=== PATIENT | female | born 1955 | race Caucasian/White ===

== ENCOUNTER 2024-03-20 20:40 | Inpatient (IN) | payer MEDICARE, OTHER ==
[~2024-03-20] VITALS: Ht 157.5 cm; Wt 60.8 kg
[2024-03-20] MEDS: IV NS 0.9% 1,000 ML BAG IV ONE ×2 (21:00→22:00)
[2024-03-20] MEDS: ACETAMINOPHEN 650 MG/SUPP.RECT RC ONE (21:00)
[2024-03-20] MEDS: CEFEPIME 1 GM in IV D5W 50 ML IV ONE (21:00)
[2024-03-20] MEDS ORDERED: ACETAMINOPHEN 650 MG/SUPP.RECT RC ONE (21:13)
[2024-03-20] MEDS ORDERED: CEFEPIME 1 GM VIAL ONE (21:13)
[2024-03-20 21:14] LABS: BASOPHILS % (AUTO) 0.1 % (0.0-2.0); HEMATOCRIT 29 % (33-45); HEMOGLOBIN 9.9 g/dL (11.5-14.8); LYMPHOCYTES # (AUTO) 0.5 K/uL (0.8-4.8); LYMPHOCYTES % (AUTO) 5.7 % (20.0-44.0); MEAN CORPUSCULAR HEMOGLOBIN 32 PG (26.0-33.0); MEAN CORPUSCULAR HGB CONC 34 g/dl (31.0-36.0); MEAN CORPUSCULAR VOLUME 93 fL (82-100); MONOCYTES # (AUTO) 0.8 K/uL (0.1-1.30); MONOCYTES % (AUTO) 8.5 % (2.0-12.0); NEUTROPHILS # (AUTO) 8.3 K/uL (1.8-8.9); NEUTROPHILS % (AUTO) 85.7 % (43.0-81.0); PLATELET COUNT (AUTO) 107 K/uL (150-450); RED BLOOD CELL COUNT(AUTO) 3.14 MIL/uL (4.0-5.2); WHITE BLOOD COUNT (AUTO) 9.7 K/uL (4.3-11.0)
[2024-03-20 21:15] VITALS: O2SAT 99
[2024-03-20 21:24] LABS: CALCIUM, SERUM 7.3 mg/dL (8.5-10.1); CARBON DIOXIDE 28 mmol/L (21-32); CHLORIDE 105 mmol/L (98-107); CREATININE 0.8 mg/dL (0.6-1.3); GLUCOSE 132 mg/dL (74-106); POTASSIUM 3.8 mmol/L (3.5-5.1); SODIUM SERUM 141 mmol/L (136-145); UREA NITROGEN, BLOOD 24 mg/dL (7-18)
[2024-03-20 21:29] LABS: INR 1.29 (0.91-1.10); PARTIAL THROMBOPLASTIN TIME 45.1 SEC (24.3-34.3); PROTHROMBIN TIME 13.4 SECS (9.2-11.1)
[2024-03-20 21:30] LABS: ALANINE AMINOTRANSFERASE 54 U/L (12-78); ALBUMIN 2.2 g/dL (3.4-5.0); ALKALINE PHOSPHATASE 72 U/L (46-116); ASPARTATE AMINOTRANSFERASE 13 U/L (15-37); BILIRUBIN,DIRECT 0.2 mg/dL (0.0-0.2); BILIRUBIN,TOTAL 0.5 mg/dL (0.2-1.0); TOTAL PROTEIN, SERUM 5.2 g/dL (6.4-8.2)
[2024-03-20] MEDS: VANCOMYCIN 1 GM /D5W 250 ML PB IV ONE (21:35)
[2024-03-20] MEDS: VANCOMYCIN 1 GM in IV D5W 250 ML IV ONE (22:00)
[2024-03-20] MEDS: IV NS 0.9% 500 ML BAG IV ONE (22:00)
[2024-03-20] MEDS ORDERED: ONDANSETRON HCL/PF 4 MG/2 ML VIAL IVP PRN (23:00)
[2024-03-20] MEDS ORDERED: Z GUARD REMEDY 4 OZ OINT TP PRN (23:00)
[2024-03-20 23:30] VITALS: O2SAT 99
[2024-03-20 23:40] LABS: APPEARANCE,URINE CLEAR (CLEAR); BILIRUBIN,URINE NEGATIVE (NEGATIVE); BLOOD, URINE NEGATIVE Ery/uL (NEGATIVE); COLOR,URINE YELLOW (YELLOW); KETONES,URINE NEGATIVE (NEGATIVE); LEUKOCYTE ESTERASE ,URINE NEGATIVE (NEGATIVE); NITRITE, URINE NEGATIVE (NEGATIVE); PROTEIN,URINE TRACE mg/dl (NEGATIVE); UGLUCOSE NEGATIVE (NEGATIVE); UROBILINOGEN,URINE 0.2 EU/dL (0.2)
[2024-03-20 23:44] LABS: ADD URINE CULTURE NO; BACTERIA,URINE None seen /HPF (None Seen); RBC,URINE 0-2 /HPF (0-2); SQUAMOUS EPITHELIAL CELL,UR Rare /HPF (None Seen); WBC,URINE 0-2 /HPF (0-3)
[2024-03-21] VITALS (9 sets, daily range): BP systolic 100–129; BP diastolic 59–97; TEMP 97.1–98.7; O2SAT 94–100
[2024-03-21] MEDS ORDERED: LORAZEPAM INJ 2 MG/ML VIAL IV PRN (02:00)
[2024-03-21] MEDS ORDERED: MORPHINE SULFATE INJ 2 MG/ML DISP.SYRIN IV PRN (02:00)
[2024-03-21 07:38] LABS: BASOPHILS % (AUTO) 0.4 % (0.0-2.0); EOSINOPHILS % (AUTO) 0.3 % (0.0-6.0); HEMATOCRIT 31 % (33-45); HEMOGLOBIN 10.2 g/dL (11.5-14.8); LYMPHOCYTES # (AUTO) 0.8 K/uL (0.8-4.8); MEAN CORPUSCULAR HEMOGLOBIN 31 PG (26.0-33.0); MEAN CORPUSCULAR HGB CONC 33 g/dl (31.0-36.0); MEAN CORPUSCULAR VOLUME 95 fL (82-100); MONOCYTES # (AUTO) 0.5 K/uL (0.1-1.30); MONOCYTES % (AUTO) 5.8 % (2.0-12.0); NEUTROPHILS # (AUTO) 8.1 K/uL (1.8-8.9); NEUTROPHILS % (AUTO) 85.5 % (43.0-81.0); PLATELET COUNT (AUTO) 102 K/uL (150-450); RED BLOOD CELL COUNT(AUTO) 3.25 MIL/uL (4.0-5.2); RED CELL DISTRIBUTION WIDTH 13.8 % (11.5-15.0); WHITE BLOOD COUNT (AUTO) 9.5 K/uL (4.3-11.0)
[2024-03-21 07:58] LABS: CALCIUM, SERUM 7.6 mg/dL (8.5-10.1); CREATININE 0.6 mg/dL (0.6-1.3); PHOSPHORUS 2.7 mg/dL (2.5-4.9)
[2024-03-21] MEDS ORDERED: DOCU100C36 PO (07:58)
[2024-03-21] MEDS ORDERED: SENN8.6T19 PO (07:58)
[2024-03-21] MEDS ORDERED: ACET-2030 PO (07:58)
[2024-03-21] MEDS ORDERED: SERT50TA PO (07:58)
[2024-03-21] MEDS ORDERED: DIVA-76 PO (07:58)
[2024-03-21] MEDS ORDERED: QUET25TA PO (07:58)
[2024-03-21] MEDS ORDERED: BISA10SU11 RC (07:58)
[2024-03-21] MEDS ORDERED: GABA-532 PO (07:58)
[2024-03-21] MEDS ORDERED: LORA-259 PO ×2 (07:58)
[2024-03-21] MEDS ORDERED: MAGN400O6 PO (07:58)
[2024-03-21] MEDS ORDERED: QUET150T2 PO (07:58)
[2024-03-21] MEDS ORDERED: LEVO125T8 PO (07:58)
[2024-03-21] MEDS ORDERED: CEFEPIME 1 GM in IV D5W 50 ML IV SCH (09:00)
[2024-03-21] MEDS: PANTOPRAZOLE 40 MG VIAL IV SCH (09:29)
[2024-03-21] MEDS: VANCOMYCIN 750 MG in IV D5W 250 ML IV SCH (09:29)
[2024-03-21] MEDS: CEFEPIME 2 GM in IV D5W 100 ML IV SCH (09:29)
[2024-03-21] MEDS: ENOXAPARIN SODIUM 40 MG/0.4 ML DISP.SYRIN SQ SCH (11:16)
[2024-03-21] MEDS: IV D5/0.45 NACL 1,000 ML IV PRN (12:47)
[2024-03-21] MEDS: LORAZEPAM 0.5 MG TABLET PO PRN (14:49)
[2024-03-21] MEDS: ACETAMINOPHEN 650 MG/SUPP.RECT RC PRN (14:56)
[2024-03-22] VITALS: BP 110/76; TEMP 99.3; O2SAT 100
[2024-03-22 04:00] VITALS: BP 100/66; TEMP 99; O2SAT 100
[2024-03-22 07:04] LABS: BASOPHILS % (AUTO) 0.2 % (0.0-2.0); EOSINOPHILS % (AUTO) 0.5 % (0.0-6.0); HEMATOCRIT 29 % (33-45); HEMOGLOBIN 9.7 g/dL (11.5-14.8); LYMPHOCYTES # (AUTO) 0.9 K/uL (0.8-4.8); LYMPHOCYTES % (AUTO) 10.8 % (20.0-44.0); MEAN CORPUSCULAR HEMOGLOBIN 32 PG (26.0-33.0); MEAN CORPUSCULAR HGB CONC 34 g/dl (31.0-36.0); MEAN CORPUSCULAR VOLUME 95 fL (82-100); MONOCYTES % (AUTO) 11.2 % (2.0-12.0); NEUTROPHILS # (AUTO) 6.6 K/uL (1.8-8.9); NEUTROPHILS % (AUTO) 77.3 % (43.0-81.0); PLATELET COUNT (AUTO) 89 K/uL (150-450); RED BLOOD CELL COUNT(AUTO) 3.06 MIL/uL (4.0-5.2); WHITE BLOOD COUNT (AUTO) 8.5 K/uL (4.3-11.0)
[2024-03-22 07:37] LABS: CALCIUM, SERUM 8.7 mg/dL (8.5-10.1); CREATININE 0.5 mg/dL (0.6-1.3); POTASSIUM 4.3 mmol/L (3.5-5.1)
[2024-03-22 08:00] VITALS: BP 111/72; TEMP 97.9; O2SAT 100
[2024-03-22 08:10] LABS: LYMPHOCYTES % (MANUAL) 10 % (16-48); MONOCYTES % (MANUAL) 12 % (0-11.0); NEUTROPHILS % (MANUAL) 78 (42-76); PLATELET ESTIMATE DECREASED
[2024-03-22 12:00] VITALS: BP 117/73; TEMP 98.6; O2SAT 98
[2024-03-22 16:00] VITALS: BP 139/89; TEMP 97.7; O2SAT 98
[2024-03-22 20:00] VITALS: BP 154/88; TEMP 98.3; O2SAT 98
[2024-03-23] VITALS (7 sets, daily range): BP systolic 90–137; BP diastolic 64–86; TEMP 97.9–98.8; O2SAT 98–100
[2024-03-23 07:01] LABS: BASOPHILS % (AUTO) 0.1 % (0.0-2.0); EOSINOPHILS % (AUTO) 0.1 % (0.0-6.0); HEMATOCRIT 33 % (33-45); HEMOGLOBIN 11.1 g/dL (11.5-14.8); LYMPHOCYTES # (AUTO) 0.9 K/uL (0.8-4.8); LYMPHOCYTES % (AUTO) 7.8 % (20.0-44.0); MEAN CORPUSCULAR HEMOGLOBIN 32 PG (26.0-33.0); MEAN CORPUSCULAR HGB CONC 34 g/dl (31.0-36.0); MEAN CORPUSCULAR VOLUME 94 fL (82-100); MONOCYTES # (AUTO) 0.9 K/uL (0.1-1.30); MONOCYTES % (AUTO) 7.8 % (2.0-12.0); NEUTROPHILS # (AUTO) 9.5 K/uL (1.8-8.9); NEUTROPHILS % (AUTO) 84.2 % (43.0-81.0); PLATELET COUNT (AUTO) 126 K/uL (150-450); RED BLOOD CELL COUNT(AUTO) 3.48 MIL/uL (4.0-5.2); RED CELL DISTRIBUTION WIDTH 12.8 % (11.5-15.0); WHITE BLOOD COUNT (AUTO) 11.2 K/uL (4.3-11.0)
[2024-03-23 07:25] LABS: CALCIUM, SERUM 8.3 mg/dL (8.5-10.1); CREATININE 0.4 mg/dL (0.6-1.3); POTASSIUM 3.1 mmol/L (3.5-5.1)
[2024-03-23] MEDS: PANTOPRAZOLE 40 MG TABLET.DR PO SCH (08:34)
[2024-03-23] MEDS: VANCOMYCIN 750 MG in IV D5W 250 ML IV SCH (09:19)
[2024-03-23] MEDS: POTASSIUM CHLORIDE 20 MEQ TAB.PRT.SR PO SCH (12:06)
[2024-03-23] MEDS: DOCUSATE SODIUM 100 MG CAPSULE PO SCH (16:08)
[2024-03-23] MEDS: DIVALPROEX SODIUM 250 MG TABLET.DR PO SCH (16:08)
[2024-03-23] MEDS: QUETIAPINE FUMARATE 25 MG TABLET PO SCH ×2 (16:08→21:38)
[2024-03-23] MEDS: SENNOSIDES 8.6 MG TABLET PO SCH (18:00)
[2024-03-24] VITALS (7 sets, daily range): BP systolic 97–127; BP diastolic 61–83; TEMP 97.5–98.7; O2SAT 96–100
[2024-03-24 07:05] LABS: BASOPHILS % (AUTO) 0.4 % (0.0-2.0); EOSINOPHILS # (AUTO) 0.1 K/uL (0.0-0.7); EOSINOPHILS % (AUTO) 1.7 % (0.0-6.0); HEMATOCRIT 27 % (33-45); HEMOGLOBIN 9.4 g/dL (11.5-14.8); LYMPHOCYTES % (AUTO) 16.9 % (20.0-44.0); MEAN CORPUSCULAR HEMOGLOBIN 32 PG (26.0-33.0); MEAN CORPUSCULAR HGB CONC 35 g/dl (31.0-36.0); MEAN CORPUSCULAR VOLUME 93 fL (82-100); MONOCYTES # (AUTO) 0.7 K/uL (0.1-1.30); MONOCYTES % (AUTO) 11.7 % (2.0-12.0); NEUTROPHILS % (AUTO) 69.3 % (43.0-81.0); PLATELET COUNT (AUTO) 119 K/uL (150-450); RED BLOOD CELL COUNT(AUTO) 2.91 MIL/uL (4.0-5.2); RED CELL DISTRIBUTION WIDTH 13.1 % (11.5-15.0); WHITE BLOOD COUNT (AUTO) 5.8 K/uL (4.3-11.0)
[2024-03-24 07:36] LABS: CALCIUM, SERUM 8.4 mg/dL (8.5-10.1); CREATININE 0.4 mg/dL (0.6-1.3)
[2024-03-24 08:10] LABS: POTASSIUM 2.7 mmol/L (3.5-5.1)
[2024-03-24] MEDS: LEVOTHYROXINE SODIUM 125 MCG TABLET PO SCH (08:18)
[2024-03-24] MEDS: SERTRALINE HCL 50 MG TABLET PO SCH (08:18)
[2024-03-24] MEDS: MAGNESIUM HYDROXIDE 30 ML UDC PO SCH (08:26)
[2024-03-24] MEDS: GABAPENTIN 100 MG CAPSULE PO SCH (08:27)
[2024-03-24] MEDS: PANTOPRAZOLE 40 MG/PACK PACK PO SCH (08:28)
[2024-03-24] MEDS: POTASSIUM CHLORIDE 20 MEQ POWDER PACKET PO SCH (10:18)
[2024-03-25] VITALS: BP 136/62; TEMP 98.1
[2024-03-25 05:09] VITALS: BP 120/66; TEMP 97.3
[2024-03-25 07:37] LABS: CALCIUM, SERUM 8.5 mg/dL (8.5-10.1); CREATININE 0.4 mg/dL (0.6-1.3)
[2024-03-25 08:00] VITALS: BP 123/77; TEMP 97.6; O2SAT 100
[2024-03-25 08:43] LABS: BASOPHILS % (AUTO) 0.5 % (0.0-2.0); EOSINOPHILS # (AUTO) 0.1 K/uL (0.0-0.7); EOSINOPHILS % (AUTO) 2.6 % (0.0-6.0); HEMATOCRIT 28 % (33-45); HEMOGLOBIN 9.6 g/dL (11.5-14.8); LYMPHOCYTES % (AUTO) 19.8 % (20.0-44.0); MEAN CORPUSCULAR HEMOGLOBIN 31 PG (26.0-33.0); MEAN CORPUSCULAR HGB CONC 34 g/dl (31.0-36.0); MEAN CORPUSCULAR VOLUME 93 fL (82-100); MONOCYTES # (AUTO) 0.5 K/uL (0.1-1.30); MONOCYTES % (AUTO) 10.2 % (2.0-12.0); NEUTROPHILS # (AUTO) 3.3 K/uL (1.8-8.9); NEUTROPHILS % (AUTO) 66.9 % (43.0-81.0); PLATELET COUNT (AUTO) 134 K/uL (150-450); RED BLOOD CELL COUNT(AUTO) 3.05 MIL/uL (4.0-5.2); WHITE BLOOD COUNT (AUTO) 4.9 K/uL (4.3-11.0)
[2024-03-25] MEDS ORDERED: CEFE2FRO IV (11:27)
[2024-03-25 13:00] VITALS: O2SAT 96
== END 2024-03-25 15:55 | DRG 177 ==
LOC: ER 20:48 → TRANSITION 03-21 05:42 → TELE-TD 03-21 07:48 → TELE1 03-22 10:32 → MEDSG1 03-25 10:38
PROVIDERS: ATTEND Internal Medicine
DX: J15.69 Pneumonia due to other Gram-negative bacteria (principal); E43 Unspecified severe protein-calorie malnutrition; J96.01 Acute respiratory failure with hypoxia; G93.41 Metabolic encephalopathy; F02.84 Dementia in other diseases classified elsewhere, unspecified severity, with anxiety; F02.83 Dementia in other diseases classified elsewhere, unspecified severity, with mood disturbance; R64 Cachexia; J15.9 Unspecified bacterial pneumonia; Z66 Do not resuscitate; Z20.822 Contact with and (suspected) exposure to COVID-19; F32.9 Major depressive disorder, single episode, unspecified; Y95 Nosocomial condition; E03.9 Hypothyroidism, unspecified; R13.10 Dysphagia, unspecified; F41.1 Generalized anxiety disorder; G30.9 Alzheimer's disease, unspecified; Z74.09 Other reduced mobility; R54 Age-related physical debility; F09 Unspecified mental disorder due to known physiological condition; Z79.899 Other long term (current) drug therapy; D69.6 Thrombocytopenia, unspecified; E86.0 Dehydration; N28.9 Disorder of kidney and ureter, unspecified; E88.09 Other disorders of plasma-protein metabolism, not elsewhere classified; Z51.5 Encounter for palliative care
CPT/HCPCS: 36415; 71045-TC; 80048-TC; 80076-TC; 80202-TC; 81001; 83605-TC; 83735-TC; 84100-TC; 84484-TC; 85025-TC; 85730-TC; 87040-TC; 87081-TC; 87086-TC; 92526; 92611-TC; 93970-TC; 94760-TC; 94799-TC; 99082-TC; A4223; C9113; G0378; J0692; J1650; J2060; J2270; J3370; J3371; J3490; J7030; J7060